=== PATIENT | female | born 1945 | race Caucasian/White ===

== ENCOUNTER → 2017-01-21 | Day surgery (SDC) | payer MEDICARE, OTHER ==
[~2017-01-21] VITALS: Ht 163.8 cm; Wt 63.3 kg
[~2017-01-21] MED LIST: ASPI-110 PO; CALTCHW5 PO; CETI10CA3 PO; CHLORHEXIDINE GLUCONATE 2 % 1 PACK (2 CLOTHS) TOPICAL PRN; DEXAMETHASONE SOD PHOS 4 MG/ML VIAL ONE; DEXI60CA2 PO; DO NOT ADM ANY ANTICOAGULANT DRUGS PRN; EPINEPHrine HCL (1:1000) 1 MG/ML VIAL ONE; FAMOTIDINE 20 MG/2 ML VIAL ONE; INSULIN HUMAN REGULAR 1,000 UNITS/10 ML VIAL SQ PRN; LACTATED RINGER'S 1000 ML IV PRN; LEVO88TA2 PO; LIDOCAINE HCL 2% 100 MG/5 ML SYRINGE ONE; METOPROLOL TARTRATE 25 MG TAB PO PRN; MIDAZOLAM HCL 2 MG/2 ML VIAL ONE; MONT10TA4 PO; ONDANSETRON HCL 4 MG/2 ML VIAL IV PUSH ONE; POVIDONE IODINE 5% (ANTISEPSIS KIT) 4 APPLICATIONS EACH NARE PRN; PROPOFOL 200 MG/20 ML AMP IV ONE; SODIUM CHLORID 0.9% 500 ML IV PRN; SODIUM CHLORIDE 0.9% 20 ML VIAL ONE; TOPR25TA PO; VITA1000 PO; VITA500T83 PO; primrose oil PO
[2017-01-21 06:19] LABS: EOSINOPHIL # 0.2 TH/MM3 (0-0.4); EOSINOPHIL % 4.6 % (0.0-4.0); HEMO FLAGS DIFF FINAL; LYMPH % 38.4 % (9.0-44.0); LYMPHOCYTE # 1.8 TH/MM3 (1.0-4.8); MEAN CELL VOLUME 92.1 FL (80.0-100.0); MEAN CORPUSCULAR HEMOGLOBIN 30.5 PG (27.0-34.0); MEAN CORPUSCULAR HGB CONC 33.1 % (32.0-36.0); MONO % 12.1 % (0.0-8.0); NEUT % 43.9 % (16.0-70.0); PLATELET COUNT 273 TH/MM3 (150-450); RED BLOOD COUNT 4.35 MIL/MM3 (4.00-5.30); RED CELL DISTRIBUTION WIDTH 12.5 % (11.6-17.2); WHITE BLOOD COUNT 4.6 TH/MM3 (4.0-11.0)
[2017-01-21 06:29] LABS: APTT (PATIENT) 24.7 SEC (24.3-30.1); INTERNATIONAL NORMALIZED RATIO 0.9 RATIO; PROTHROMBIN TIME - PATIENT 10.2 SEC (9.8-11.6)
--- NOTE | 2017-01-21 08:37 | MR ---
cc: KOLTON HI M.D. DATE: 01/21/2017 PROCEDURE Fiberoptic bronchoscopy, flexible. REASON FOR BRONCHOSCOPY Tracheal mass. DETAILS OF PROCEDURE Fiberoptic bronchoscopy performed via LMA under general anesthesia. Vocal cords appeared intact without abnormality. The trachea was mildly hyperemic. Multiple polypoid sessile lesions throughout the trachea are noted, benign-appearing. No bleeding noted. No necrotic change. Briseida sharp. Right main stem bronchus, right upper, middle and lower lobe, left main stem bronchus, left upper and lower lobe no obstruction, no mass lesion. Washings and brushings of the tracheal polyps were done and sent for routine TB and fungal cultures as well as cytological examination. Procedure very well tolerated. Patient transferred to recovery room in stable condition. IMPRESSION 1. Benign-appearing polypoid lesions throughout the trachea. 2. Mild tracheobronchitis. 3. Samples obtained as above. 4. Procedure well-tolerated. 5. Patient transferred to Recovery in stable condition. MD KIM Florez/ALEXI /8:21 AM /8:24 AM
[2017-01-21 09:46] VITALS: BP 130/65; PULSE 54; RESP 20; TEMP 98.3; O2SAT 95
--- NOTE | 2017-01-21 19:34 | EKG ---
Date Performed: 01/21/2017 Time Performed: 06:18:37 PTAGE: 71 years EKG: Sinus rhythm NORMAL ECG NO PREVIOUS TRACING DOCTOR: Fernando Montague Interpretating Date/Time 01/21/2017 19:32:27
== END | disposition home or self-care (01) ==
LOC: HSDC 05:18
PROVIDERS: ATTEND Internal Medicine Sleep Medicine
DX: J40 Bronchitis, not specified as acute or chronic (principal); J39.8 Other specified diseases of upper respiratory tract; Z01.810 Encounter for preprocedural cardiovascular examination; E03.9 Hypothyroidism, unspecified; K21.9 Gastro-esophageal reflux disease without esophagitis; M19.90 Unspecified osteoarthritis, unspecified site; Z86.718 Personal history of other venous thrombosis and embolism; Z79.82 Long term (current) use of aspirin; Z79.899 Other long term (current) drug therapy
CPT/HCPCS: 00520; 31623; 85025; 85610; 85730; 87015; 87070; 87077; 87102; 87116; 87205; 87206; 88112; 93005; J0171; J1100; J2250; J2405; J3010; J7120